=== PATIENT | male | born 1955 | race Caucasian/White ===

== ENCOUNTER 2024-05-06 08:10 | Outpatient (CLI) | payer SELFPAY ==
[2024-05-06 09:29] LABS: 25 Hydroxy Vitamin D 26 ng/mL (30-100); Prostate Specific Antigen Scr 2.68 ng/mL (0-4)
== END 2024-05-06 08:11 | disposition home or self-care (01) ==
PROVIDERS: PCP Nurse Practitioner; Visit Provider Dermatology
DX: Z13.9 Encounter for screening, unspecified (principal)
CPT/HCPCS: 36415